=== PATIENT | male | born 1940 | race Caucasian/White ===

== ENCOUNTER 2016-10-25 17:03 | Inpatient (IN) | payer OTHER ==
[2016-10-25] MEDS ORDERED: ZOFRAN INJ 4 MG VIAL 16 MG, ATIVAN INJ 2 MG VIAL 1 MG, DECADRON INJ 10 MG in NS 50 ML I... IV PRN (17:38)
--- NOTE | 2016-10-25 17:45 | DR.H&P ---
H&P - History & Physical for Day of: H&P Date: 10/24/16 - Chief Complaint Chief Complaint: left flank pain, weakness, blood in urine - Allergies Allergies/Adverse Reactions: Allergies Allergy/AdvReac Type Severity Reaction Status Date / Time No Known Drug Allergy Allergy Verified 10/12/15 09:59 - History of Present Illness History of Present Illness: Patient is a 76-year-old white male who was a direct admit from Dr. Sprague's office after presenting with complaints of left flank pain, nausea vomiting, weakness and dehydration, blood in urine. Patient was seen at [facility] this past weekend and had a CT scan diagnosed with a renal stone to the left ureter. Patient denies passing the stone. Patient has seen Dr. Arthur, urologist earlier this week. Patient continues with severe pain and nausea and vomiting. Patient unable to keep anything down and cannot tolerate pain medication. Patient has a past medical history of factor V Leiden, hypertension, stage III renal disease, coronary artery disease - Past Medical History Past Medical History: Arthritis, Coronary Artery Disease, Hypertension, Kidney Stones, Renal Disease Additional Medical History: Reflux disease. Repeat H liver disease long-term anticoagulant therapy. Hypertension. Coronary artery disease. History of a PE. Factor V Leiden - Family History Family Medical History: Coronary Artery Disease, Hypertension - Social History Does patient currently use any type of tobacco product: Yes Have you used tobacco products in the last 12 months: Yes Type of Tobacco Use: Smokeless Does any household member use tobacco: No Alcohol Use: None Drug Use: None - Review of Systems Constitutional: Weakness Eyes: No Symptoms Reported ENT: No Symptoms Reported Respiratory: No Symptoms Reported Cardiovascular: Edema Gastrointestinal: Nausea, Vomiting, Abdominal Pain, Constipation Genitourinary: Hematuria, Retention Musculoskeletal: Back Pain Skin: No Symptoms Reported Neurological: Weakness, Confusion (per family) - Physical Exam Vital Signs: Blood Pressure 127/74 Oriented: Normal Eyes: Normal Ear: Normal Nose: Normal Throat: Dry Respiratory: RLL Diminished, LLL Diminished Cardiovascular: Normal, Edema (+ bilateral lower extremity edema) Tenderness: LLQ, Other (left flank tenderness) Musculoskeletal: Back:Thoracic Psychiatric: Anxiety Speech Pattern: Clear, Appropriate - Assessment/Plan (1) Renal calculus or stone Status: Acute Plan: with intractable pain, n/v. FOR iv HYDRATION AND iv PAIN CONTROL. pLAN TO OBTAIN REPEAT ct SCAN WITHOUT CONTRAST. aDMISSION LABS INCLUDING cbc, cmp, MAGNESIUM, URINALYSIS, BLOOD CULTURES. cHEST X-RAY ON ADMISSION. sTRICT i DENIES. nAUSEA CONTROL (2) UTI (urinary tract infection) Qualifiers: Urinary tract infection type: U Hematuria presence: H Indwelling urinary catheter type: I Encounter type: E Status: Acute Plan: RENAL DOSE FOR lEVAQUIN DAILY (3) Hematuria Status: Acute (4) Hypertension Qualifiers: Hypertension type: H Status: Acute (5) Factor V Leiden Status: Acute (6) Chronic renal failure, stage 3 (moderate) Status: Acute
[2016-10-25] MEDS ORDERED: LEVAQUIN PREMIX IV 250 MG 250 MG/50 ML BAG IV ONE (17:49)
[2016-10-25] MEDS ORDERED: NS 1000 ML 500 ML IV ONE (18:00)
[2016-10-25 18:28] LABS: BASOPHILS % (AUTO) 0.5 % (0.2-1.0); EOSINOPHILS # (AUTO) 0.2 x10^3/uL (0.0-0.2); EOSINOPHILS % (AUTO) 1.9 % (0.9-2.9); HEMATOCRIT 36.4 % (42.0-54.0); HEMOGLOBIN 12.2 g/dL (13.5-18.0); LYMPHOCYTES # (AUTO) 1.1 X10^3/uL (1.3-2.9); LYMPHOCYTES % (AUTO) 12.1 % (21.0-51.0); MEAN CORPUSCULAR HGB CONC 33.4 g/dL (33.0-35.0); MEAN CORPUSCULAR VOLUME 98.9 fL (80.0-100.0); MEAN PLATELET VOLUME 10.4 fL (7.4-11.0); MONOCYTES # (AUTO) 0.9 x10^3/uL (0.3-0.8); MONOCYTES % (AUTO) 10.1 % (0.0-13.0); NEUTROPHILS # (AUTO) 6.8 x10^3/uL (2.2-4.8); NEUTROPHILS % (AUTO) 75.4 % (42.0-75.0); PLATELET COUNT 85 X10^3/uL (150.0-450.0); RED BLOOD COUNT 3.68 X10^6/uL (4.7-6.0); RED CELL DISTRIBUTION WIDTH 15.4 % (11.6-16.5)
[2016-10-25 18:39] LABS: CALCIUM 8.4 mg/dL (8.5-10.1); CARBON DIOXIDE 25.7 mmol/L (21-32); COR CA(FOR HYPOALB) 9.2 mg/dL (8.5-10.1); CREATININE 3.7 mg/dL (0.70-1.30); MAGNESIUM 1.8 mg/dL (1.7-2.9); TOTAL PROTEIN 6.2 g/dL (6.4-8.2)
[2016-10-25 18:53] LABS: BILIRUBIN,URINE NEGATIVE (NEGATIVE); BLOOD/HEMOGLOBIN,URINE 5+ (NEGATIVE); GLUCOSE, URINE NEGATIVE (NEGATIVE); KETONES,URINE NEGATIVE (NEGATIVE); LEUKOCYTE ESTERASE ,URINE NEGATIVE (NEGATIVE); NITRITES,URINE NEGATIVE (NEGATIVE); PROTEIN,URINE 1+ (NEGATIVE); UROBILINOGEN,URINE NORMAL (NORMAL)
[2016-10-25 18:58] LABS: APPEARANCE,URINE HAZY (CLEAR); BACTERIA,URINE TRACE /HPF (NEGATIVE); COLOR,URINE YELLOW (YELLOW); RBC,URINE 0-5 /HPF (NEGATIVE); SQUAMOUS EPITHELIAL CELL,UR NEGATIVE /HPF (NEGATIVE)
--- NOTE | 2016-10-25 19:17 | RAD ---
Chest, one view Indication: Weakness, vomiting, CHF. Comparison: None Findings: There are ill-defined opacities at the medial left lung base. There is also linear scarrin g versus subsegmental atelectasis extending from the right hilum. No large effusion or pneumothorax is identified. The heart size is normal. The bony thorax is unremarkable. Impression: Ill-defined left basilar opacity, concerning for infiltrate. Correlation is recommended. Reported By:
[2016-10-25] MEDS: PROTONIX INJ 40 MG VIAL IVP SCH (19:31)
[2016-10-25 20:43] VITALS: BMI 23.7
[2016-10-26] MEDS ORDERED: NS 1000 ML 1,000 ML IV SCH (00:40)
[2016-10-26 05:23] LABS: BASOPHILS % (AUTO) 0.5 % (0.2-1.0); EOSINOPHILS # (AUTO) 0.2 x10^3/uL (0.0-0.2); EOSINOPHILS % (AUTO) 2.3 % (0.9-2.9); HEMATOCRIT 33.1 % (42.0-54.0); HEMOGLOBIN 11.2 g/dL (13.5-18.0); LYMPHOCYTES # (AUTO) 1.2 X10^3/uL (1.3-2.9); LYMPHOCYTES % (AUTO) 15.3 % (21.0-51.0); MEAN CORPUSCULAR HEMOGLOBIN 33.2 pg (27.0-34.0); MEAN CORPUSCULAR HGB CONC 33.9 g/dL (33.0-35.0); MEAN PLATELET VOLUME 10.1 fL (7.4-11.0); MONOCYTES # (AUTO) 0.9 x10^3/uL (0.3-0.8); MONOCYTES % (AUTO) 11.6 % (0.0-13.0); NEUTROPHILS # (AUTO) 5.6 x10^3/uL (2.2-4.8); NEUTROPHILS % (AUTO) 70.3 % (42.0-75.0); PLATELET COUNT 77 X10^3/uL (150.0-450.0); RED BLOOD COUNT 3.38 X10^6/uL (4.7-6.0); RED CELL DISTRIBUTION WIDTH 15.2 % (11.6-16.5); WHITE BLOOD COUNT 7.9 X10^3/uL (3.6-10.0)
[2016-10-26 05:57] LABS: ALBUMIN 2.4 g/dL (3.4-5.0); CALCIUM 7.9 mg/dL (8.5-10.1); CARBON DIOXIDE 21.4 mmol/L (21-32); COR CA(FOR HYPOALB) 9.2 mg/dL (8.5-10.1); CREATININE 3.53 mg/dL (0.70-1.30); TOTAL PROTEIN 5.1 g/dL (6.4-8.2)
[2016-10-26] MEDS: PROTONIX INJ 40 MG VIAL IVP SCH (09:14)
[2016-10-26] MEDS: NS 1000 ML 1,000 ML IV SCH (09:14)
[2016-10-26] MEDS ORDERED: ULTRAM PO PRN (11:40)
[2016-10-26] MEDS ORDERED: MILK OF MAGNESIA PO STA (11:42)
[2016-10-26] MEDS ORDERED: [UNRECOGNIZED DRUG - OTHER] PO SCH (11:45)
--- NOTE | 2016-10-26 11:54 | CT ---
HISTORY: Hematuria, renal colloid, left flank pain Study: CT abdomen and pelvis without contrast Comparison: Previous scanned in report from 10/22/2016 was reviewed Technique: Multiple axial images of the abdomen and pelvis were obtained without IV contrast. Oral contrast wa s not administered. Dose reduction techniques including Automated Exposure Control (AEC) and adjustm ent of mA and kV were utilized. Findings: There are small bilateral pleural effusions and atelectasis at the lung bases. Multiple hypodense l esions are seen in the liver measuring up to 10.4 cm statistically most likely representing cysts, b ut incompletely evaluated on noncontrast imaging. The unenhanced spleen, pancreas and adrenal glands are within normal limits. Small gas containing stones are suspected at the gallbladder neck. The bi liary tree is not dilated. There are bilateral simple appearing renal cysts noted. There is moderate left-sided hydroureteronephrosis due to a 6 mm stone in the distal left ureter. There are punctate bilateral nonobstructing renal calculi also noted. No free intraperitoneal air. No evidence of intestinal obstruction or inflammation. The appendix is normal. No significant free fluid identified. Sigmoid diverticular noted without evidence of acute i nflammation. There are degenerative changes of the thoracolumbar spine and bilateral hips with mild dextro curvat ure of the lumbar spine. There is extensive atherosclerotic disease of the aorta. No pathologically enlarged lymph nodes are identified. Mildly enlarged prostate gland. The urinary bladder is unremark able. IMPRESSION: 1. Moderate left-sided hydronephrosis due to a 6 mm stone in the distal left ureter. 2. Bilateral nephrolithiasis. 3. Renal and hepatic cysts. 4. Suspect small gallstones at the gallbladder neck. 5. Sigmoid diverticulosis. Reported By:
[2016-10-26] MEDS: ZOFRAN INJ 4 MG VIAL IVP PRN (18:16)
[2016-10-26] MEDS: MONOKET or IMDUR PO SCH (20:44)
[2016-10-26] MEDS: ELIQUIS PO SCH (20:44)
[2016-10-27] MEDS: NS 1000 ML 1,000 ML IV SCH ×2 (00:10→20:16)
[2016-10-27] MEDS: ZOFRAN INJ 4 MG VIAL IVP PRN ×2 (04:12→20:05)
[2016-10-27] MEDS: MORPHINE SULFATE INJ 2 MG IVP PRN ×2 (04:12→20:03)
[2016-10-27 06:36] LABS: BASOPHILS % (AUTO) 0.3 % (0.2-1.0); EOSINOPHILS # (AUTO) 0.3 x10^3/uL (0.0-0.2); EOSINOPHILS % (AUTO) 3.5 % (0.9-2.9); HEMATOCRIT 32.5 % (42.0-54.0); HEMOGLOBIN 10.9 g/dL (13.5-18.0); LYMPHOCYTES % (AUTO) 12.9 % (21.0-51.0); MEAN CORPUSCULAR HEMOGLOBIN 32.9 pg (27.0-34.0); MEAN CORPUSCULAR HGB CONC 33.4 g/dL (33.0-35.0); MEAN CORPUSCULAR VOLUME 98.7 fL (80.0-100.0); MEAN PLATELET VOLUME 9.8 fL (7.4-11.0); MONOCYTES # (AUTO) 0.9 x10^3/uL (0.3-0.8); MONOCYTES % (AUTO) 11.5 % (0.0-13.0); NEUTROPHILS # (AUTO) 5.8 x10^3/uL (2.2-4.8); NEUTROPHILS % (AUTO) 71.8 % (42.0-75.0); PLATELET COUNT 87 X10^3/uL (150.0-450.0)
[2016-10-27 06:41] LABS: ALANINE AMINOTRANSFERASE 24 Units/L (12-78); ALBUMIN 2.2 g/dL (3.4-5.0); ALKALINE PHOSPHATASE 85 Units/L (46-116); ASPARTATE AMINO TRANSFERASE 44 Units/L (15-37); BLOOD UREA NITROGEN 36 mg/dL (7-18); CALCIUM 7.5 mg/dL (8.5-10.1); CARBON DIOXIDE 24.7 mmol/L (21-32); CHLORIDE 103 mmol/L (98-107); COR CA(FOR HYPOALB) 8.9 mg/dL (8.5-10.1); GLUCOSE 109 mg/dL (65-99); SODIUM 135 mmol/L (136-145); TOTAL PROTEIN 4.7 g/dL (6.4-8.2); eGFR BLACK RACES 21 (>60); eGFR NON BLACK RACES 18 (>60)
[2016-10-27] MEDS ORDERED: NORCO 5/325 MG TAB PO PRN (08:29)
[2016-10-27] MEDS: FLOMAX PO SCH ×2 (08:56→20:05)
[2016-10-27] MEDS: PROTONIX TAB 40 MG PO SCH (08:56)
[2016-10-27] MEDS: ELIQUIS PO SCH ×2 (08:56→20:05)
[2016-10-27] MEDS: MONOKET or IMDUR PO SCH ×2 (08:57→20:05)
[2016-10-27] MEDS ORDERED: ZYLOPRIM PO SCH (09:00)
[2016-10-27] MEDS ORDERED: CITROMA PO ONE (13:29)
[2016-10-27] MEDS ORDERED: NS 1000 ML 250 ML IV ONE (13:58)
--- NOTE | 2016-10-27 14:55 | PCM.PROG ---
Progress Note - Progress Note for Day of Date: 10/26/16 - Subjective Subjective: patient is a 76-year-old white male who was admitted on 10/25 with complaints of left flank pain as well as nausea and vomiting and generalized weakness. Patient was diagnosed with a left renal stone on 10/21. Patient has been unable to pass stone at this point. Patient continues with generalized weakness and nausea. Patient's renal function still elevated baseline creatinine normally around 1.7-1.8. Plan to repeat CT of abdomen and pelvis today - Past Medical Family Social History Past Med/Fam/Surg Hx: No changes since H&P Allergies: Allergies No Known Drug Allergy Allergy (Verified 10/12/15 09:59) - Review of Systems ROS: No change since H&P - Vital Signs and I&O's Vital Signs: Temperature 98.7 F Pulse Rate [Left Brachial] 68 Respiratory Rate 18 Blood Pressure [Left Arm] 119/58 Blood Pressure 127/74 O2 Sat by Pulse Oximetry 91 Intake and Output: Intake & Output 10/25/16 10/26/16 10/27/16 10/28/16 11:59 11:59 11:59 11:59 Intake Total 0 1350 Output Total 50 1150 Balance -50 200 - Physical Exam Oriented: Normal Eyes: Normal Ear: Normal Nose: Normal Throat: Dry Cardiovascular: Normal, Edema (+ bilateral lower extremity edema) Tenderness: LLQ, Other (left flank tenderness) Musculoskeletal: Back:Thoracic Psychiatric: Anxiety Speech Pattern: Clear, Appropriate - Laboratory and Diagnostics Result Diagrams: 10/27/16 03:30 10/27/16 03:30 Labs: 10/25/16 18:05 Blood Blood Culture - Preliminary 10/25/16 17:55 Blood Blood Culture - Preliminary Laboratory WBC 8.0 X10^3/uL (3.6-10.0) 10/27/16 03:30 RBC 3.30 X10^6/uL (4.7-6.0) L 10/27/16 03:30 Hgb 10.9 g/dL (13.5-18.0) L 10/27/16 03:30 Hct 32.5 % (42.0-54.0) L 10/27/16 03:30 MCV 98.7 fL (80.0-100.0) 10/27/16 03:30 MCH 32.9 pg (27.0-34.0) 10/27/16 03:30 MCHC 33.4 g/dL (33.0-35.0) 10/27/16 03:30 RDW 15.0 % (11.6-16.5) 10/27/16 03:30 Plt Count 87 X10^3/uL (150.0-450.0) L 10/27/16 03:30 MPV 9.8 fL (7.4-11.0) 10/27/16 03:30 Neut % 71.8 % (42.0-75.0) 10/27/16 03:30 Lymph % 12.9 % (21.0-51.0) L 10/27/16 03:30 [place] % 11.5 % (0.0-13.0) 10/27/16 03:30 Eos % 3.5 % (0.9-2.9) H 10/27/16 03:30 Baso % 0.3 % (0.2-1.0) 10/27/16 03:30 Neut # 5.8 x10^3/uL (2.2-4.8) H 10/27/16 03:30 Lymph # 1.0 X10^3/uL (1.3-2.9) L 10/27/16 03:30 [place] # 0.9 x10^3/uL (0.3-0.8) H 10/27/16 03:30 Eos # 0.3 x10^3/uL (0.0-0.2) H 10/27/16 03:30 Baso # 0.0 X10^3/uL (0.0-0.1) 10/27/16 03:30 Absolute Nucleated RBC 0.2 /100WBC 10/27/16 03:30 Sodium 135 mmol/L (136-145) L 10/27/16 03:30 Corrected Sodium TNP 10/27/16 03:30 Potassium 4.1 mmol/L (3.5-5.1) 10/27/16 03:30 Chloride 103 mmol/L (98-107) 10/27/16 03:30 Carbon Dioxide 24.7 mmol/L (21-32) 10/27/16 03:30 BUN 36 mg/dL (7-18) H 10/27/16 03:30 Creatinine 3.60 mg/dL (0.70-1.30) H 10/27/16 03:30 Est GFR (MDRD) Af Amer 21 (>60) L 10/27/16 03:30 Est GFR (MDRD) Non-Af 18 (>60) L 10/27/16 03:30 Glucose 109 mg/dL (65-99) H 10/27/16 03:30 Calcium 7.5 mg/dL (8.5-10.1) L 10/27/16 03:30 Corrected Calcium 8.9 mg/dL (8.5-10.1) 10/27/16 03:30 Magnesium 1.8 mg/dL (1.7-2.9) 10/25/16 17:55 Total Bilirubin 0.90 mg/dL (0.2-1.0) 10/27/16 03:30 AST 44 Units/L (15-37) H 10/27/16 03:30 ALT 24 Units/L (12-78) 10/27/16 03:30 Alkaline Phosphatase 85 Units/L (46-116) 10/27/16 03:30 Total Protein 4.7 g/dL (6.4-8.2) L 10/27/16 03:30 Albumin 2.2 g/dL (3.4-5.0) L 10/27/16 03:30 Globulin 2.5 g/dL (2.5-4.5) 10/27/16 03:30 Albumin/Globulin Ratio 0.9 Ratio (1.1-2.1) L 10/27/16 03:30 Specimen Type Clean catch urine 10/25/16 18:32 Urine Color Yellow (YELLOW) 10/25/16 18:32 Urine Appearance Hazy (CLEAR) 10/25/16 18:32 Urine pH 5.0 (5.0 - 8.0) 10/25/16 18:32 Ur Specific [place] 1.015 (1.000-1.030) 10/25/16 18:32 Urine Protein 1+ (NEGATIVE) 10/25/16 18:32 Urine Glucose (UA) Negative (NEGATIVE) 10/25/16 18:32 Urine Ketones Negative (NEGATIVE) 10/25/16 18:32 Urine Occult Blood 5+ (NEGATIVE) 10/25/16 18:32 Urine Nitrite Negative (NEGATIVE) 10/25/16 18:32 Urine Bilirubin Negative (NEGATIVE) 10/25/16 18:32 Urine Urobilinogen Normal (NORMAL) 10/25/16 18:32 Ur Leukocyte Esterase Negative (NEGATIVE) 10/25/16 18:32 Urine RBC 0-5 /HPF (NEGATIVE) 10/25/16 18:32 Urine WBC 0-3 /HPF (NEGATIVE) 10/25/16 18:32 Ur Squamous Epith Cells Negative /HPF (NEGATIVE) 10/25/16 18:32 Urine Bacteria Trace /HPF (NEGATIVE) 10/25/16 18:32 Ur Culture Indicated? No/not indicated 10/25/16 18:32 - Plan (1) Renal calculus or stone Status: Acute Plan: with intractable pain, n/v. continue iv HYDRATION AND iv PAIN CONTROL. pLAN TO OBTAIN REPEAT ct SCAN WITHOUT CONTRAST. aDMISSION LABS INCLUDING cbc, cmp, MAGNESIUM, URINALYSIS, BLOOD CULTURES. cHEST X-RAY ON ADMISSION. sTRICT i & os (2) UTI (urinary tract infection) Status: Acute Qualifiers: Urinary tract infection type: U Hematuria presence: H Indwelling urinary catheter type: I Encounter type: E Plan: RENAL DOSE FOR lEVAQUIN DAILY (3) Hematuria Status: Acute (4) Hypertension Status: Chronic Qualifiers: Hypertension type: H (5) Factor V Leiden Status: Chronic (6) Chronic renal failure, stage 3 (moderate) Status: Chronic
--- NOTE | 2016-10-27 14:57 | PCM.PROG ---
Progress Note - Progress Note for Day of Date: 10/27/16 - Subjective Subjective: patient is a 76-year-old white male who was admitted on 10/25 with complaints of left flank pain as well as nausea and vomiting and generalized weakness. Patient was diagnosed with a left renal stone on 10/21. Patient has been unable to pass stone at this point. Patient continues with generalized weakness and nausea. Patient's renal function still elevated baseline creatinine normally around 1.7-1.8. repeat CT of abdomen and pelvis REVEALED SLIGHT PROGRESSION OF RENAL STONE INTO THE DISTAL URETER. pATIENT CONTINUES WITH DECREASED RENAL FUNCTION SIGNIFICANTLY ABOVE BASELINE. wE WILL ENCOURAGE BY MOUTH HYDRATION, PHYSICAL THERAPY AND iv BOLUS. wILL REPEAT A.M. LABS - Past Medical Family Social History Past Med/Fam/Surg Hx: No changes since H&P Allergies: Allergies No Known Drug Allergy Allergy (Verified 10/12/15 09:59) - Review of Systems ROS: No change since H&P - Vital Signs and I&O's Vital Signs: Temperature 98.7 F Pulse Rate [Left Brachial] 68 Respiratory Rate 18 Blood Pressure [Left Arm] 119/58 Blood Pressure 127/74 O2 Sat by Pulse Oximetry 91 Intake and Output: Intake & Output 10/25/16 10/26/16 10/27/16 10/28/16 11:59 11:59 11:59 11:59 Intake Total 0 1350 Output Total 50 1150 Balance -50 200 - Physical Exam Oriented: Normal Eyes: Normal Ear: Normal Nose: Normal Throat: Dry Cardiovascular: Normal, Edema (+ bilateral lower extremity edema) Tenderness: LLQ, Other (left flank tenderness) Musculoskeletal: Back:Thoracic Psychiatric: Anxiety Speech Pattern: Clear, Appropriate - Laboratory and Diagnostics Result Diagrams: 10/27/16 03:30 10/27/16 03:30 Labs: 10/25/16 18:05 Blood Blood Culture - Preliminary 10/25/16 17:55 Blood Blood Culture - Preliminary Laboratory WBC 8.0 X10^3/uL (3.6-10.0) 10/27/16 03:30 RBC 3.30 X10^6/uL (4.7-6.0) L 10/27/16 03:30 Hgb 10.9 g/dL (13.5-18.0) L 10/27/16 03:30 Hct 32.5 % (42.0-54.0) L 10/27/16 03:30 MCV 98.7 fL (80.0-100.0) 10/27/16 03:30 MCH 32.9 pg (27.0-34.0) 10/27/16 03:30 MCHC 33.4 g/dL (33.0-35.0) 10/27/16 03:30 RDW 15.0 % (11.6-16.5) 10/27/16 03:30 Plt Count 87 X10^3/uL (150.0-450.0) L 10/27/16 03:30 MPV 9.8 fL (7.4-11.0) 10/27/16 03:30 Neut % 71.8 % (42.0-75.0) 10/27/16 03:30 Lymph % 12.9 % (21.0-51.0) L 10/27/16 03:30 [place] % 11.5 % (0.0-13.0) 10/27/16 03:30 Eos % 3.5 % (0.9-2.9) H 10/27/16 03:30 Baso % 0.3 % (0.2-1.0) 10/27/16 03:30 Neut # 5.8 x10^3/uL (2.2-4.8) H 10/27/16 03:30 Lymph # 1.0 X10^3/uL (1.3-2.9) L 10/27/16 03:30 [place] # 0.9 x10^3/uL (0.3-0.8) H 10/27/16 03:30 Eos # 0.3 x10^3/uL (0.0-0.2) H 10/27/16 03:30 Baso # 0.0 X10^3/uL (0.0-0.1) 10/27/16 03:30 Absolute Nucleated RBC 0.2 /100WBC 10/27/16 03:30 Sodium 135 mmol/L (136-145) L 10/27/16 03:30 Corrected Sodium TNP 10/27/16 03:30 Potassium 4.1 mmol/L (3.5-5.1) 10/27/16 03:30 Chloride 103 mmol/L (98-107) 10/27/16 03:30 Carbon Dioxide 24.7 mmol/L (21-32) 10/27/16 03:30 BUN 36 mg/dL (7-18) H 10/27/16 03:30 Creatinine 3.60 mg/dL (0.70-1.30) H 10/27/16 03:30 Est GFR (MDRD) Af Amer 21 (>60) L 10/27/16 03:30 Est GFR (MDRD) Non-Af 18 (>60) L 10/27/16 03:30 Glucose 109 mg/dL (65-99) H 10/27/16 03:30 Calcium 7.5 mg/dL (8.5-10.1) L 10/27/16 03:30 Corrected Calcium 8.9 mg/dL (8.5-10.1) 10/27/16 03:30 Magnesium 1.8 mg/dL (1.7-2.9) 10/25/16 17:55 Total Bilirubin 0.90 mg/dL (0.2-1.0) 10/27/16 03:30 AST 44 Units/L (15-37) H 10/27/16 03:30 ALT 24 Units/L (12-78) 10/27/16 03:30 Alkaline Phosphatase 85 Units/L (46-116) 10/27/16 03:30 Total Protein 4.7 g/dL (6.4-8.2) L 10/27/16 03:30 Albumin 2.2 g/dL (3.4-5.0) L 10/27/16 03:30 Globulin 2.5 g/dL (2.5-4.5) 10/27/16 03:30 Albumin/Globulin Ratio 0.9 Ratio (1.1-2.1) L 10/27/16 03:30 Specimen Type Clean catch urine 10/25/16 18:32 Urine Color Yellow (YELLOW) 10/25/16 18:32 Urine Appearance Hazy (CLEAR) 10/25/16 18:32 Urine pH 5.0 (5.0 - 8.0) 10/25/16 18:32 Ur Specific [place] 1.015 (1.000-1.030) 10/25/16 18:32 Urine Protein 1+ (NEGATIVE) 10/25/16 18:32 Urine Glucose (UA) Negative (NEGATIVE) 10/25/16 18:32 Urine Ketones Negative (NEGATIVE) 10/25/16 18:32 Urine Occult Blood 5+ (NEGATIVE) 10/25/16 18:32 Urine Nitrite Negative (NEGATIVE) 10/25/16 18:32 Urine Bilirubin Negative (NEGATIVE) 10/25/16 18:32 Urine Urobilinogen Normal (NORMAL) 10/25/16 18:32 Ur Leukocyte Esterase Negative (NEGATIVE) 10/25/16 18:32 Urine RBC 0-5 /HPF (NEGATIVE) 10/25/16 18:32 Urine WBC 0-3 /HPF (NEGATIVE) 10/25/16 18:32 Ur Squamous Epith Cells Negative /HPF (NEGATIVE) 10/25/16 18:32 Urine Bacteria Trace /HPF (NEGATIVE) 10/25/16 18:32 Ur Culture Indicated? No/not indicated 10/25/16 18:32 - Plan (1) Renal calculus or stone Status: Acute Plan: with intractable pain, n/v. continue iv HYDRATION AND iv PAIN CONTROL. pLAN TO OBTAIN REPEAT ct SCAN WITHOUT CONTRAST. REPEAT AM LABS cbc, cmp cHEST X-RAY Q AM sTRICT i & os (2) UTI (urinary tract infection) Status: Acute Qualifiers: Urinary tract infection type: U Hematuria presence: H Indwelling urinary catheter type: I Encounter type: E Plan: RENAL DOSE FOR lEVAQUIN DAILY (3) Hematuria Status: Acute (4) Hypertension Status: Chronic Qualifiers: Hypertension type: H (5) Factor V Leiden Status: Chronic Plan: CONTINUE ELIQUIS (6) Chronic renal failure, stage 3 (moderate) Status: Chronic Plan: BASE LINE CREAT 1.7-1.9, WILL ENCOURAGE HYDRATION
[2016-10-27] MEDS: [UNRECOGNIZED DRUG - OTHER] PO SCH (16:06)
[2016-10-27 19:40] LABS: BLOOD UREA NITROGEN 34 mg/dL (7-18); CALCIUM 7.5 mg/dL (8.5-10.1); CARBON DIOXIDE 24.6 mmol/L (21-32); CHLORIDE 100 mmol/L (98-107); CREATININE 3.47 mg/dL (0.70-1.30); GLUCOSE 99 mg/dL (65-99); SODIUM 131 mmol/L (136-145); eGFR BLACK RACES 22 (>60); eGFR NON BLACK RACES 18 (>60)
[2016-10-28] MEDS: [UNRECOGNIZED DRUG - OTHER] PO SCH (00:27)
--- NOTE | 2016-10-28 05:39 | RAD ---
Chest, one view Indication: CHF, weakness Comparison: 10/25/2016 Findings: Previously described left basilar infiltrate has resolved. The right lung remains essentia lly clear. No large effusion or pneumothorax. The heart size is normal. Impression: Resolved left basilar opacity. No new abnormality. Reported By:
[2016-10-28 06:34] LABS: BASOPHILS % (AUTO) 0.2 % (0.2-1.0); EOSINOPHILS # (AUTO) 0.2 x10^3/uL (0.0-0.2); EOSINOPHILS % (AUTO) 3.2 % (0.9-2.9); HEMATOCRIT 31.9 % (42.0-54.0); LYMPHOCYTES # (AUTO) 0.9 X10^3/uL (1.3-2.9); LYMPHOCYTES % (AUTO) 11.5 % (21.0-51.0); MEAN CORPUSCULAR HEMOGLOBIN 33.4 pg (27.0-34.0); MEAN CORPUSCULAR HGB CONC 34.4 g/dL (33.0-35.0); MEAN CORPUSCULAR VOLUME 97.2 fL (80.0-100.0); MEAN PLATELET VOLUME 8.7 fL (7.4-11.0); MONOCYTES # (AUTO) 0.9 x10^3/uL (0.3-0.8); MONOCYTES % (AUTO) 12.1 % (0.0-13.0); NEUTROPHILS # (AUTO) 5.6 x10^3/uL (2.2-4.8); PLATELET COUNT 83 X10^3/uL (150.0-450.0); RED BLOOD COUNT 3.28 X10^6/uL (4.7-6.0); RED CELL DISTRIBUTION WIDTH 15.1 % (11.6-16.5); WHITE BLOOD COUNT 7.7 X10^3/uL (3.6-10.0)
[2016-10-28 07:21] LABS: ALANINE AMINOTRANSFERASE 28 Units/L (12-78); ALBUMIN 2.2 g/dL (3.4-5.0); ALKALINE PHOSPHATASE 82 Units/L (46-116); ASPARTATE AMINO TRANSFERASE 51 Units/L (15-37); BLOOD UREA NITROGEN 34 mg/dL (7-18); CALCIUM 7.4 mg/dL (8.5-10.1); CARBON DIOXIDE 25.5 mmol/L (21-32); CHLORIDE 102 mmol/L (98-107); COR CA(FOR HYPOALB) 8.8 mg/dL (8.5-10.1); CREATININE 3.36 mg/dL (0.70-1.30); GLUCOSE 101 mg/dL (65-99); SODIUM 133 mmol/L (136-145); TOTAL PROTEIN 4.9 g/dL (6.4-8.2); eGFR BLACK RACES 23 (>60); eGFR NON BLACK RACES 19 (>60)
[2016-10-28] MEDS: PROTONIX TAB 40 MG PO SCH (09:11)
[2016-10-28] MEDS: ELIQUIS PO SCH ×2 (09:11→20:56)
[2016-10-28] MEDS: MICRO K EXTEN CAP 10 MEQ PO SCH ×2 (09:11→20:56)
[2016-10-28] MEDS: FLOMAX PO SCH ×2 (09:12→20:56)
[2016-10-28] MEDS: MONOKET or IMDUR PO SCH ×2 (09:12→20:57)
[2016-10-28] MEDS: NS 1000 ML 1,000 ML IV SCH ×3 (13:00→20:22)
[2016-10-28] MEDS: MYLICON TAB 80 MG CHEW PO PRN (23:55)
[2016-10-29 07:27] LABS: BASOPHILS % (AUTO) 0.5 % (0.2-1.0); EOSINOPHILS # (AUTO) 0.3 x10^3/uL (0.0-0.2); EOSINOPHILS % (AUTO) 4.8 % (0.9-2.9); HEMATOCRIT 30.6 % (42.0-54.0); HEMOGLOBIN 10.5 g/dL (13.5-18.0); LYMPHOCYTES # (AUTO) 0.8 X10^3/uL (1.3-2.9); MEAN CORPUSCULAR HEMOGLOBIN 33.3 pg (27.0-34.0); MEAN CORPUSCULAR HGB CONC 34.1 g/dL (33.0-35.0); MEAN CORPUSCULAR VOLUME 97.7 fL (80.0-100.0); MEAN PLATELET VOLUME 9.4 fL (7.4-11.0); MONOCYTES # (AUTO) 0.7 x10^3/uL (0.3-0.8); MONOCYTES % (AUTO) 12.1 % (0.0-13.0); NEUTROPHILS # (AUTO) 3.9 x10^3/uL (2.2-4.8); NEUTROPHILS % (AUTO) 68.6 % (42.0-75.0); PLATELET COUNT 79 X10^3/uL (150.0-450.0); RED BLOOD COUNT 3.14 X10^6/uL (4.7-6.0); RED CELL DISTRIBUTION WIDTH 15.2 % (11.6-16.5); WHITE BLOOD COUNT 5.6 X10^3/uL (3.6-10.0)
[2016-10-29 07:37] LABS: ALANINE AMINOTRANSFERASE 32 Units/L (12-78); ALBUMIN 1.9 g/dL (3.4-5.0); ALKALINE PHOSPHATASE 78 Units/L (46-116); ASPARTATE AMINO TRANSFERASE 57 Units/L (15-37); BLOOD UREA NITROGEN 31 mg/dL (7-18); CALCIUM 7.2 mg/dL (8.5-10.1); CARBON DIOXIDE 24.3 mmol/L (21-32); CHLORIDE 103 mmol/L (98-107); COR CA(FOR HYPOALB) 8.9 mg/dL (8.5-10.1); CREATININE 3.12 mg/dL (0.70-1.30); GLUCOSE 95 mg/dL (65-99); SODIUM 134 mmol/L (136-145); TOTAL PROTEIN 4.7 g/dL (6.4-8.2); eGFR BLACK RACES 25 (>60); eGFR NON BLACK RACES 21 (>60)
--- NOTE | 2016-10-29 08:34 | CT ---
HISTORY: Left-sided flank pain, renal stone Study: CT abdomen and pelvis without contrast Comparison: 10/27/2011 Technique: Multiple axial images of the abdomen and pelvis were obtained from the lung bases to the pubic symph ysis without the administration of IV contrast. Automated exposure control (AEC) was utilized to ad just the MA and/or kV according to patient size. Findings: There are moderately sized bilateral pleural effusions again demonstrated. There is bibasilar atelec tasis. Abdomen: Please note that the lack of intravenous contrast limits sensitivity for detection of parenchymal le sions. There is again demonstration of a hypodensity within the right hepatic lobe measuring 9.8 x 8.3 cm d emonstrating fluid density. This is unchanged from previous exam. Multiple other smaller subcentimet er hypodensities are scattered throughout the liver.. There is increased attenuation within the gal lbladder which may represent sludge. This appears unchanged from previous exam.. The spleen, pancre as, and bilateral adrenal glands appear normal. There is again demonstration of mild left hydronephrosis and hydroureter secondary to a 5 mm calculu s within the distal right ureter this appears unchanged in position when compared to previous exam. 2.8 cm fluid density mass within the upper pole of the left kidney is compatible with a renal cyst.. The stomach is unremarkable. The small bowel and colon are nondistended. The appendix appears norm al. The abdominal aorta is of normal caliber. There is trace free fluid noted within the abdomen. Pelvis: The urinary bladder is grossly unremarkable. There is diverticulosis of the sigmoid colon without ev idence of diverticulitis.. There is a small amount of free fluid within the pelvis.. No acute osseous abnormalities are identified. IMPRESSION: 1. Mild left hydronephrosis and hydroureter secondary to a 5 mm calculus within the distal left ure ter. The degree of hydronephrosis and the location of the stone appear unchanged from previous exam. 2. Large hypodensity within the right hepatic lobe measures fluid density measuring up to 9.8 cm. Th is may represent a large hepatic cyst however would be better characterized with contrast-enhanced i maging either CT of the abdomen or MRI as clinically indicated. 3. Hyperattenuation within the gallbladder is likely secondary to sludge or small gallstones. This c ould be further assessed with gallbladder ultrasound if clinically indicated. 4. Sigmoid diverticulosis. 5. Bilateral pleural effusions and bibasilar atelectasis. 6. Trace ascites 7. Other findings as above Reported By:
[2016-10-29] MEDS: FLOMAX PO SCH ×2 (08:38→20:55)
[2016-10-29] MEDS: PROTONIX TAB 40 MG PO SCH (08:39)
[2016-10-29] MEDS: MICRO K EXTEN CAP 10 MEQ PO SCH ×2 (08:39→20:54)
[2016-10-29] MEDS: MONOKET or IMDUR PO SCH ×2 (08:39→20:56)
[2016-10-29] MEDS: MORPHINE SULFATE INJ 2 MG IVP PRN (13:33)
[2016-10-29] MEDS: ZOFRAN INJ 4 MG VIAL IVP PRN (13:33)
[2016-10-29] MEDS: NS 1000 ML 1,000 ML IV SCH ×2 (14:44→20:58)
[2016-10-29] MEDS: ELIQUIS PO SCH ×2 (16:43→20:55)
[2016-10-29] MEDS ORDERED: TORADOL 15 MG VIAL IM ONE (17:43)
[2016-10-29] MEDS ORDERED: TORADOL 15 MG VIAL IVP ONE (18:35)
[2016-10-29] MEDS ORDERED: ULTRAM PO PRN (18:35)
[2016-10-29] MEDS: MYLICON TAB 80 MG CHEW PO PRN (18:40)
[2016-10-29] MEDS: ATIVAN TAB 0.5 MG PO PRN (20:54)
[2016-10-30 05:07] LABS: CALCIUM 7.4 mg/dL (8.5-10.1); CARBON DIOXIDE 24.5 mmol/L (21-32); CREATININE 3.23 mg/dL (0.70-1.30)
[2016-10-30 05:13] LABS: BASOPHILS % (AUTO) 0.3 % (0.2-1.0); EOSINOPHILS # (AUTO) 0.3 x10^3/uL (0.0-0.2); EOSINOPHILS % (AUTO) 6.2 % (0.9-2.9); HEMATOCRIT 30.2 % (42.0-54.0); HEMOGLOBIN 10.4 g/dL (13.5-18.0); LYMPHOCYTES # (AUTO) 0.8 X10^3/uL (1.3-2.9); LYMPHOCYTES % (AUTO) 17.3 % (21.0-51.0); MEAN CORPUSCULAR HEMOGLOBIN 33.5 pg (27.0-34.0); MEAN CORPUSCULAR HGB CONC 34.4 g/dL (33.0-35.0); MEAN CORPUSCULAR VOLUME 97.3 fL (80.0-100.0); MEAN PLATELET VOLUME 8.9 fL (7.4-11.0); MONOCYTES # (AUTO) 0.5 x10^3/uL (0.3-0.8); MONOCYTES % (AUTO) 10.8 % (0.0-13.0); NEUTROPHILS # (AUTO) 3.2 x10^3/uL (2.2-4.8); NEUTROPHILS % (AUTO) 65.4 % (42.0-75.0); PLATELET COUNT 84 X10^3/uL (150.0-450.0); RED CELL DISTRIBUTION WIDTH 15.1 % (11.6-16.5); WHITE BLOOD COUNT 4.9 X10^3/uL (3.6-10.0)
[2016-10-30] MEDS: FLOMAX PO SCH ×2 (09:49→22:16)
[2016-10-30] MEDS: MICRO K EXTEN CAP 10 MEQ PO SCH ×2 (09:49→22:16)
[2016-10-30] MEDS: PROTONIX TAB 40 MG PO SCH (09:50)
[2016-10-30] MEDS: MONOKET or IMDUR PO SCH ×2 (09:50→22:21)
[2016-10-30] MEDS: ELIQUIS PO SCH ×2 (09:50→22:16)
--- NOTE | 2016-10-30 13:20 | RAD ---
HISTORY: Shortness of breath Study: Chest two-view Comparison: October 28, 2016 Findings: The heart is within normal limits in size. The kali are normal. The lungs are mildly hyperinflated c onsistent with COPD. No acute alveolar infiltrates are identified. There is a small left pleural eff usion present. The bony thorax is unremarkable. IMPRESSION: lungs hyperinflated but clear, consistent with COPD in the appropriate clinical setting. Small left pleural effusion Reported By:
[2016-10-30] MEDS ORDERED: RESTORIL CAP 15 MG PO PRN (13:23)
[2016-10-30] MEDS ORDERED: LASIX IVP ONE (17:04)
--- NOTE | 2016-10-30 17:07 | PCM.PROG ---
Progress Note - Progress Note for Day of Date: 10/30/16 - Subjective Subjective: patient is a 76-year-old white male who was admitted on 10/25 with complaints of left flank pain as well as nausea and vomiting and generalized weakness. Patient was diagnosed with a left renal stone on 10/21. Patient has been unable to pass stone at this point. Patient continues with generalized weakness and nausea. Patient's renal function still elevated baseline creatinine normally around 1.7-1.8. repeat CT of abdomen and pelvis REVEALED SLIGHT PROGRESSION OF RENAL STONE INTO THE DISTAL URETER. pATIENT CONTINUES WITH DECREASED RENAL FUNCTION SIGNIFICANTLY ABOVE BASELINE. wE WILL ENCOURAGE BY MOUTH HYDRATION, PHYSICAL THERAPY AND wILL REPEAT A.M. LABS - Past Medical Family Social History Past Med/Fam/Surg Hx: No changes since H&P Allergies: Allergies No Known Drug Allergy Allergy (Verified 10/12/15 09:59) - Review of Systems ROS: No change since H&P - Vital Signs and I&O's Vital Signs: Temperature 98.0 F Pulse Rate [Left Brachial] 57 Respiratory Rate 18 Blood Pressure [Left Arm] 126/65 Blood Pressure 127/74 O2 Sat by Pulse Oximetry 97 Intake and Output: Intake & Output 10/28/16 10/29/16 10/30/16 10/31/16 11:59 11:59 11:59 11:59 Intake Total 1600 1740 1740 1190 Output Total 700 1175 1675 400 Balance 900 565 65 790 - Physical Exam Oriented: Normal Eyes: Normal Ear: Normal Nose: Normal Throat: Dry Cardiovascular: Normal, Edema (+ bilateral lower extremity edema) Tenderness: LLQ, Other (left flank tenderness) Musculoskeletal: Back:Thoracic Psychiatric: Anxiety Speech Pattern: Clear, Appropriate - Laboratory and Diagnostics Result Diagrams: 10/30/16 03:45 10/30/16 03:45 Labs: 10/25/16 18:05 Blood Blood Culture - Final 10/25/16 17:55 Blood Blood Culture - Final Laboratory WBC 4.9 X10^3/uL (3.6-10.0) 10/30/16 03:45 RBC 3.10 X10^6/uL (4.7-6.0) L 10/30/16 03:45 Hgb 10.4 g/dL (13.5-18.0) L 10/30/16 03:45 Hct 30.2 % (42.0-54.0) L 10/30/16 03:45 MCV 97.3 fL (80.0-100.0) 10/30/16 03:45 MCH 33.5 pg (27.0-34.0) 10/30/16 03:45 MCHC 34.4 g/dL (33.0-35.0) 10/30/16 03:45 RDW 15.1 % (11.6-16.5) 10/30/16 03:45 Plt Count 84 X10^3/uL (150.0-450.0) L 10/30/16 03:45 MPV 8.9 fL (7.4-11.0) 10/30/16 03:45 Neut % 65.4 % (42.0-75.0) 10/30/16 03:45 Lymph % 17.3 % (21.0-51.0) L 10/30/16 03:45 [place] % 10.8 % (0.0-13.0) 10/30/16 03:45 Eos % 6.2 % (0.9-2.9) H 10/30/16 03:45 Baso % 0.3 % (0.2-1.0) 10/30/16 03:45 Neut # 3.2 x10^3/uL (2.2-4.8) 10/30/16 03:45 Lymph # 0.8 X10^3/uL (1.3-2.9) L 10/30/16 03:45 [place] # 0.5 x10^3/uL (0.3-0.8) 10/30/16 03:45 Eos # 0.3 x10^3/uL (0.0-0.2) H 10/30/16 03:45 Baso # 0.0 X10^3/uL (0.0-0.1) 10/30/16 03:45 Absolute Nucleated RBC 0.0 /100WBC 10/30/16 03:45 Sodium 136 mmol/L (136-145) 10/30/16 03:45 Corrected Sodium 136 mmol/L (136-145) 10/30/16 03:45 Potassium 4.9 mmol/L (3.5-5.1) 10/30/16 03:45 Chloride 106 mmol/L (98-107) 10/30/16 03:45 Carbon Dioxide 24.5 mmol/L (21-32) 10/30/16 03:45 BUN 32 mg/dL (7-18) H 10/30/16 03:45 Creatinine 3.23 mg/dL (0.70-1.30) H 10/30/16 03:45 Est GFR (MDRD) Af Amer 24 (>60) L 10/30/16 03:45 Est GFR (MDRD) Non-Af 20 (>60) L 10/30/16 03:45 Glucose 118 mg/dL (65-99) H 10/30/16 03:45 Calcium 7.4 mg/dL (8.5-10.1) L 10/30/16 03:45 Corrected Calcium 8.9 mg/dL (8.5-10.1) 10/29/16 06:40 Magnesium 1.8 mg/dL (1.7-2.9) 10/25/16 17:55 Total Bilirubin 1.20 mg/dL (0.2-1.0) H 10/29/16 06:40 AST 57 Units/L (15-37) H 10/29/16 06:40 ALT 32 Units/L (12-78) 10/29/16 06:40 Alkaline Phosphatase 78 Units/L (46-116) 10/29/16 06:40 Total Protein 4.7 g/dL (6.4-8.2) L 10/29/16 06:40 Albumin 1.9 g/dL (3.4-5.0) L 10/29/16 06:40 Globulin 2.8 g/dL (2.5-4.5) 10/29/16 06:40 Albumin/Globulin Ratio 0.7 Ratio (1.1-2.1) L 10/29/16 06:40 Specimen Type Clean catch urine 10/25/16 18:32 Urine Color Yellow (YELLOW) 10/25/16 18:32 Urine Appearance Hazy (CLEAR) 10/25/16 18:32 Urine pH 5.0 (5.0 - 8.0) 10/25/16 18:32 Ur Specific [place] 1.015 (1.000-1.030) 10/25/16 18:32 Urine Protein 1+ (NEGATIVE) 10/25/16 18:32 Urine Glucose (UA) Negative (NEGATIVE) 10/25/16 18:32 Urine Ketones Negative (NEGATIVE) 10/25/16 18:32 Urine Occult Blood 5+ (NEGATIVE) 10/25/16 18:32 Urine Nitrite Negative (NEGATIVE) 10/25/16 18:32 Urine Bilirubin Negative (NEGATIVE) 10/25/16 18:32 Urine Urobilinogen Normal (NORMAL) 10/25/16 18:32 Ur Leukocyte Esterase Negative (NEGATIVE) 10/25/16 18:32 Urine RBC 0-5 /HPF (NEGATIVE) 10/25/16 18:32 Urine WBC 0-3 /HPF (NEGATIVE) 10/25/16 18:32 Ur Squamous Epith Cells Negative /HPF (NEGATIVE) 10/25/16 18:32 Urine Bacteria Trace /HPF (NEGATIVE) 10/25/16 18:32 Ur Culture Indicated? No/not indicated 10/25/16 18:32 - Plan (1) Renal calculus or stone Status: Acute Plan: with intractable pain, n/v. continue iv HYDRATION AND iv PAIN CONTROL. pLAN TO OBTAIN REPEAT ct SCAN WITHOUT CONTRAST. REPEAT AM LABS cbc, cmp cHEST X-RAY Q AM sTRICT i & os (2) UTI (urinary tract infection) Status: Acute Qualifiers: Urinary tract infection type: U Hematuria presence: H Indwelling urinary catheter type: I Encounter type: E Plan: RENAL DOSE FOR lEVAQUIN DAILY (3) Hematuria Status: Acute (4) Hypertension Status: Chronic Qualifiers: Hypertension type: H (5) Factor V Leiden Status: Chronic Plan: CONTINUE ELIQUIS (6) Chronic renal failure, stage 3 (moderate) Status: Chronic Plan: BASE LINE CREAT 1.7-1.9, WILL ENCOURAGE HYDRATION
[2016-10-30] MEDS: MIRALAX POWDER (1 DOSE 17GM) PO SCH (22:16)
[2016-10-30] MEDS: NS 1000 ML 1,000 ML IV SCH (22:21)
[2016-10-31] MEDS: ATIVAN TAB 0.5 MG PO PRN (00:32)
[2016-10-31] MEDS: MYLICON TAB 80 MG CHEW PO PRN (00:36)
[2016-10-31] MEDS: NORCO 5/325 MG TAB PO PRN ×2 (00:37→23:28)
[2016-10-31] MEDS: NS 1000 ML 1,000 ML IV SCH ×2 (01:09→20:29)
[2016-10-31 05:25] LABS: BASOPHILS % (AUTO) 0.3 % (0.2-1.0); EOSINOPHILS # (AUTO) 0.4 x10^3/uL (0.0-0.2); EOSINOPHILS % (AUTO) 6.3 % (0.9-2.9); HEMATOCRIT 28.9 % (42.0-54.0); HEMOGLOBIN 9.9 g/dL (13.5-18.0); LYMPHOCYTES % (AUTO) 16.1 % (21.0-51.0); MEAN CORPUSCULAR HEMOGLOBIN 33.4 pg (27.0-34.0); MEAN CORPUSCULAR HGB CONC 34.2 g/dL (33.0-35.0); MEAN CORPUSCULAR VOLUME 97.8 fL (80.0-100.0); MEAN PLATELET VOLUME 9.1 fL (7.4-11.0); MONOCYTES # (AUTO) 0.6 x10^3/uL (0.3-0.8); MONOCYTES % (AUTO) 10.1 % (0.0-13.0); NEUTROPHILS % (AUTO) 67.2 % (42.0-75.0); PLATELET COUNT 97 X10^3/uL (150.0-450.0); RED BLOOD COUNT 2.95 X10^6/uL (4.7-6.0)
[2016-10-31 05:44] LABS: ALANINE AMINOTRANSFERASE 36 Units/L (12-78); ALBUMIN 1.9 g/dL (3.4-5.0); ALKALINE PHOSPHATASE 83 Units/L (46-116); ASPARTATE AMINO TRANSFERASE 53 Units/L (15-37); BLOOD UREA NITROGEN 29 mg/dL (7-18); CALCIUM 7.3 mg/dL (8.5-10.1); CARBON DIOXIDE 22.4 mmol/L (21-32); CHLORIDE 106 mmol/L (98-107); CREATININE 3.01 mg/dL (0.70-1.30); GLUCOSE 91 mg/dL (65-99); SODIUM 136 mmol/L (136-145); TOTAL PROTEIN 4.7 g/dL (6.4-8.2); eGFR BLACK RACES 26 (>60); eGFR NON BLACK RACES 22 (>60)
[2016-10-31] MEDS: PROTONIX TAB 40 MG PO SCH (09:12)
[2016-10-31] MEDS: MICRO K EXTEN CAP 10 MEQ PO SCH ×2 (09:12→20:41)
[2016-10-31] MEDS: ELIQUIS PO SCH ×2 (09:12→20:42)
[2016-10-31] MEDS: FLOMAX PO SCH ×2 (09:12→20:42)
[2016-10-31] MEDS: MONOKET or IMDUR PO SCH ×2 (09:13→20:41)
[2016-10-31] MEDS: MIRALAX POWDER (1 DOSE 17GM) PO SCH ×2 (15:26→20:42)
--- NOTE | 2016-10-31 18:21 | PCM.PROG ---
Progress Note - Progress Note for Day of Date: 10/31/16 - Subjective Subjective: patient is a 76-year-old white male who was admitted on 10/25 with complaints of left flank pain as well as nausea and vomiting and generalized weakness. Patient was diagnosed with a left renal stone on 10/21. Patient has been unable to pass stone at this point. Patient continues with generalized weakness and nausea. Patient's renal function still elevated baseline creatinine normally around 1.7-1.8. repeat CT of abdomen and pelvis REVEALED SLIGHT PROGRESSION OF RENAL STONE INTO THE DISTAL URETER. pATIENT CONTINUES WITH DECREASED RENAL FUNCTION SIGNIFICANTLY ABOVE BASELINE. wE WILL ENCOURAGE BY MOUTH HYDRATION, PHYSICAL THERAPY AND wILL REPEAT A.M. LABS - Past Medical Family Social History Past Med/Fam/Surg Hx: No changes since H&P Allergies: Allergies No Known Drug Allergy Allergy (Verified 10/12/15 09:59) - Review of Systems ROS: No change since H&P - Vital Signs and I&O's Vital Signs: Temperature 97.9 F Pulse Rate [Left Brachial] 62 Respiratory Rate 18 Blood Pressure [Left Arm] 123/58 Blood Pressure 127/74 O2 Sat by Pulse Oximetry 95 Intake and Output: Intake & Output 10/29/16 10/30/16 10/31/16 11/01/16 11:59 11:59 11:59 11:59 Intake Total 1740 1740 2310 240 Output Total 1175 1675 1900 1450 Balance 565 65 410 -1210 - Physical Exam Oriented: Normal Eyes: Normal Ear: Normal Nose: Normal Throat: Dry Cardiovascular: Normal, Edema (+ bilateral lower extremity edema) Tenderness: LLQ, Other (left flank tenderness) Musculoskeletal: Back:Thoracic Psychiatric: Anxiety Speech Pattern: Clear, Appropriate - Laboratory and Diagnostics Result Diagrams: 10/31/16 03:30 10/31/16 03:30 Labs: 10/25/16 18:05 Blood Blood Culture - Final 10/25/16 17:55 Blood Blood Culture - Final Laboratory WBC 6.0 X10^3/uL (3.6-10.0) 10/31/16 03:30 RBC 2.95 X10^6/uL (4.7-6.0) L 10/31/16 03:30 Hgb 9.9 g/dL (13.5-18.0) L 10/31/16 03:30 Hct 28.9 % (42.0-54.0) L 10/31/16 03:30 MCV 97.8 fL (80.0-100.0) 10/31/16 03:30 MCH 33.4 pg (27.0-34.0) 10/31/16 03:30 MCHC 34.2 g/dL (33.0-35.0) 10/31/16 03:30 RDW 15.0 % (11.6-16.5) 10/31/16 03:30 Plt Count 97 X10^3/uL (150.0-450.0) L 10/31/16 03:30 MPV 9.1 fL (7.4-11.0) 10/31/16 03:30 Neut % 67.2 % (42.0-75.0) 10/31/16 03:30 Lymph % 16.1 % (21.0-51.0) L 10/31/16 03:30 [place] % 10.1 % (0.0-13.0) 10/31/16 03:30 Eos % 6.3 % (0.9-2.9) H 10/31/16 03:30 Baso % 0.3 % (0.2-1.0) 10/31/16 03:30 Neut # 4.0 x10^3/uL (2.2-4.8) 10/31/16 03:30 Lymph # 1.0 X10^3/uL (1.3-2.9) L 10/31/16 03:30 [place] # 0.6 x10^3/uL (0.3-0.8) 10/31/16 03:30 Eos # 0.4 x10^3/uL (0.0-0.2) H 10/31/16 03:30 Baso # 0.0 X10^3/uL (0.0-0.1) 10/31/16 03:30 Absolute Nucleated RBC 0.1 /100WBC 10/31/16 03:30 Sodium 136 mmol/L (136-145) 10/31/16 03:30 Corrected Sodium TNP 10/31/16 03:30 Potassium 5.0 mmol/L (3.5-5.1) 10/31/16 03:30 Chloride 106 mmol/L (98-107) 10/31/16 03:30 Carbon Dioxide 22.4 mmol/L (21-32) 10/31/16 03:30 BUN 29 mg/dL (7-18) H 10/31/16 03:30 Creatinine 3.01 mg/dL (0.70-1.30) H 10/31/16 03:30 Est GFR (MDRD) Af Amer 26 (>60) L 10/31/16 03:30 Est GFR (MDRD) Non-Af 22 (>60) L 10/31/16 03:30 Glucose 91 mg/dL (65-99) 10/31/16 03:30 Calcium 7.3 mg/dL (8.5-10.1) L 10/31/16 03:30 Corrected Calcium 9.0 mg/dL (8.5-10.1) 10/31/16 03:30 Magnesium 1.8 mg/dL (1.7-2.9) 10/25/16 17:55 Total Bilirubin 0.70 mg/dL (0.2-1.0) 10/31/16 03:30 AST 53 Units/L (15-37) H 10/31/16 03:30 ALT 36 Units/L (12-78) 10/31/16 03:30 Alkaline Phosphatase 83 Units/L (46-116) 10/31/16 03:30 Total Protein 4.7 g/dL (6.4-8.2) L 10/31/16 03:30 Albumin 1.9 g/dL (3.4-5.0) L 10/31/16 03:30 Globulin 2.8 g/dL (2.5-4.5) 10/31/16 03:30 Albumin/Globulin Ratio 0.7 Ratio (1.1-2.1) L 10/31/16 03:30 Specimen Type Clean catch urine 10/25/16 18:32 Urine Color Yellow (YELLOW) 10/25/16 18:32 Urine Appearance Hazy (CLEAR) 10/25/16 18:32 Urine pH 5.0 (5.0 - 8.0) 10/25/16 18:32 Ur Specific [place] 1.015 (1.000-1.030) 10/25/16 18:32 Urine Protein 1+ (NEGATIVE) 10/25/16 18:32 Urine Glucose (UA) Negative (NEGATIVE) 10/25/16 18:32 Urine Ketones Negative (NEGATIVE) 10/25/16 18:32 Urine Occult Blood 5+ (NEGATIVE) 10/25/16 18:32 Urine Nitrite Negative (NEGATIVE) 10/25/16 18:32 Urine Bilirubin Negative (NEGATIVE) 10/25/16 18:32 Urine Urobilinogen Normal (NORMAL) 10/25/16 18:32 Ur Leukocyte Esterase Negative (NEGATIVE) 10/25/16 18:32 Urine RBC 0-5 /HPF (NEGATIVE) 10/25/16 18:32 Urine WBC 0-3 /HPF (NEGATIVE) 10/25/16 18:32 Ur Squamous Epith Cells Negative /HPF (NEGATIVE) 10/25/16 18:32 Urine Bacteria Trace /HPF (NEGATIVE) 10/25/16 18:32 Ur Culture Indicated? No/not indicated 10/25/16 18:32 - Plan (1) Renal calculus or stone Status: Acute Plan: with intractable pain, n/v. continue iv HYDRATION AND iv PAIN CONTROL. REPEAT AM LABS cbc, cmp cHEST X-RAY Q AM sTRICT i & os. DR MONTAÑO CONSULTED WITH DR DUNLAP ABOUT RENAL CALULI AND FUTURE CYSTOSCOPE (2) UTI (urinary tract infection) Status: Acute Qualifiers: Urinary tract infection type: U Hematuria presence: H Indwelling urinary catheter type: I Encounter type: E Plan: RENAL DOSE FOR lEVAQUIN DAILY (3) Hematuria Status: Acute (4) Hypertension Status: Chronic Qualifiers: Hypertension type: H (5) Factor V Leiden Status: Chronic Plan: CONTINUE ELIQUIS (6) Chronic renal failure, stage 3 (moderate) Status: Chronic Plan: BASE LINE CREAT 1.7-1.9, WILL ENCOURAGE HYDRATION
[2016-10-31] MEDS: XANAX PO PRN (20:41)
[2016-10-31] MEDS: COLACE CAP 100 MG PO SCH (20:41)
[2016-11-01] MEDS: NS 1000 ML 1,000 ML IV SCH ×2 (05:00→19:20)
[2016-11-01 05:22] LABS: BASOPHILS % (AUTO) 0.5 % (0.2-1.0); EOSINOPHILS # (AUTO) 0.3 x10^3/uL (0.0-0.2); EOSINOPHILS % (AUTO) 5.3 % (0.9-2.9); HEMATOCRIT 28.3 % (42.0-54.0); HEMOGLOBIN 9.7 g/dL (13.5-18.0); LYMPHOCYTES % (AUTO) 15.5 % (21.0-51.0); MEAN CORPUSCULAR HEMOGLOBIN 33.5 pg (27.0-34.0); MEAN CORPUSCULAR HGB CONC 34.5 g/dL (33.0-35.0); MEAN CORPUSCULAR VOLUME 97.2 fL (80.0-100.0); MEAN PLATELET VOLUME 8.7 fL (7.4-11.0); MONOCYTES # (AUTO) 0.6 x10^3/uL (0.3-0.8); MONOCYTES % (AUTO) 9.9 % (0.0-13.0); NEUTROPHILS # (AUTO) 4.3 x10^3/uL (2.2-4.8); NEUTROPHILS % (AUTO) 68.8 % (42.0-75.0); PLATELET COUNT 117 X10^3/uL (150.0-450.0); RED BLOOD COUNT 2.91 X10^6/uL (4.7-6.0); WHITE BLOOD COUNT 6.3 X10^3/uL (3.6-10.0)
[2016-11-01 05:31] LABS: ALANINE AMINOTRANSFERASE 40 Units/L (12-78); ALBUMIN 1.9 g/dL (3.4-5.0); ALKALINE PHOSPHATASE 90 Units/L (46-116); ASPARTATE AMINO TRANSFERASE 63 Units/L (15-37); BLOOD UREA NITROGEN 29 mg/dL (7-18); CALCIUM 7.5 mg/dL (8.5-10.1); CARBON DIOXIDE 22.4 mmol/L (21-32); CHLORIDE 108 mmol/L (98-107); COR CA(FOR HYPOALB) 9.2 mg/dL (8.5-10.1); CREATININE 2.93 mg/dL (0.70-1.30); GLUCOSE 90 mg/dL (65-99); SODIUM 138 mmol/L (136-145); TOTAL PROTEIN 4.6 g/dL (6.4-8.2); eGFR BLACK RACES 27 (>60); eGFR NON BLACK RACES 22 (>60)
--- NOTE | 2016-11-01 06:29 | RAD ---
HISTORY: Weakness, shortness of breath Study: Chest one view Comparison: October 30, 2016 Findings: The heart is within normal limits in size. The kali are normal. The lungs are hyperinflated consiste nt with COPD. No acute alveolar infiltrates or pleural effusions are identified on today's examinati on. The bony thorax is unremarkable. IMPRESSION: Lungs hyperinflated but clear, consistent with COPD Reported By:
[2016-11-01] MEDS: ELIQUIS PO SCH ×2 (09:05→20:53)
[2016-11-01] MEDS: FLOMAX PO SCH ×2 (09:06→20:53)
[2016-11-01] MEDS: PROTONIX TAB 40 MG PO SCH (09:06)
[2016-11-01] MEDS: MONOKET or IMDUR PO SCH ×2 (09:07→20:54)
[2016-11-01] MEDS: MICRO K EXTEN CAP 10 MEQ PO SCH ×2 (09:07→20:54)
--- NOTE | 2016-11-01 13:30 | RAD ---
HISTORY: Left renal calculus Study: KUB Comparison: CT abdomen pelvis October 29, 2016 Findings: The psoas shadows are seen. The abdominal gas shadows are unremarkable. There is a 5 millimeter calc ification left side of the true bony pelvis likely representing a distal left ureteral calculus unch anged in position from the recent CT. IMPRESSION: No significant change in the position of the patient's 5 millimeter distal left ureteral calculus Reported By:
--- NOTE | 2016-11-01 17:59 | PCM.PROG ---
Progress Note - Progress Note for Day of Date: 11/01/16 - Subjective Subjective: patient is a 76-year-old white male who was admitted on 10/25 with complaints of left flank pain as well as nausea and vomiting and generalized weakness. Patient was diagnosed with a left renal stone on 10/21. Patient has been unable to pass stone at this point. Patient continues with generalized weakness and nausea. Patient's renal function still elevated baseline creatinine normally around 1.7-1.8. repeat CT of abdomen and pelvis REVEALED SLIGHT PROGRESSION OF RENAL STONE INTO THE DISTAL URETER. pATIENT CONTINUES WITH DECREASED RENAL FUNCTION SIGNIFICANTLY ABOVE BASELINE. PT CONTINUE CO PAIN TO LEFT FLANK AND BLOOD IN URINE. PT CO GENERALIZED WEAKNESS. PT'S FAMILY MEMBER REQUESTING 2ND UROLOGIST OPINION, PT PREVIOUSLY ASSESS OP BY DR DUNLAP - Past Medical Family Social History Past Med/Fam/Surg Hx: No changes since H&P Allergies: Allergies No Known Drug Allergy Allergy (Verified 10/12/15 09:59) - Review of Systems ROS: No change since H&P - Vital Signs and I&O's Vital Signs: Temperature 97.8 F Pulse Rate [Left Brachial] 57 Respiratory Rate 20 Blood Pressure [Left Arm] 133/62 Blood Pressure 127/74 O2 Sat by Pulse Oximetry 94 Intake and Output: Intake & Output 10/30/16 10/31/16 11/01/16 11/02/16 11:59 11:59 11:59 11:59 Intake Total 1740 2710 2061 1050 Output Total 1675 1900 3000 1600 Balance 65 350 -199 -550 - Physical Exam Oriented: Normal Eyes: Normal Ear: Normal Nose: Normal Throat: Dry Cardiovascular: Normal, Edema (+ bilateral lower extremity edema) Tenderness: LLQ, Other (left flank tenderness) Musculoskeletal: Back:Thoracic Psychiatric: Anxiety Speech Pattern: Clear, Appropriate - Laboratory and Diagnostics Result Diagrams: 11/01/16 03:10 11/01/16 04:40 Labs: 10/25/16 18:05 Blood Blood Culture - Final 10/25/16 17:55 Blood Blood Culture - Final Laboratory WBC 6.3 X10^3/uL (3.6-10.0) 11/01/16 03:10 RBC 2.91 X10^6/uL (4.7-6.0) L 11/01/16 03:10 Hgb 9.7 g/dL (13.5-18.0) L 11/01/16 03:10 Hct 28.3 % (42.0-54.0) L 11/01/16 03:10 MCV 97.2 fL (80.0-100.0) 11/01/16 03:10 MCH 33.5 pg (27.0-34.0) 11/01/16 03:10 MCHC 34.5 g/dL (33.0-35.0) 11/01/16 03:10 RDW 15.0 % (11.6-16.5) 11/01/16 03:10 Plt Count 117 X10^3/uL (150.0-450.0) L 11/01/16 03:10 MPV 8.7 fL (7.4-11.0) 11/01/16 03:10 Neut % 68.8 % (42.0-75.0) 11/01/16 03:10 Lymph % 15.5 % (21.0-51.0) L 11/01/16 03:10 [place] % 9.9 % (0.0-13.0) 11/01/16 03:10 Eos % 5.3 % (0.9-2.9) H 11/01/16 03:10 Baso % 0.5 % (0.2-1.0) 11/01/16 03:10 Neut # 4.3 x10^3/uL (2.2-4.8) 11/01/16 03:10 Lymph # 1.0 X10^3/uL (1.3-2.9) L 11/01/16 03:10 [place] # 0.6 x10^3/uL (0.3-0.8) 11/01/16 03:10 Eos # 0.3 x10^3/uL (0.0-0.2) H 11/01/16 03:10 Baso # 0.0 X10^3/uL (0.0-0.1) 11/01/16 03:10 Absolute Nucleated RBC 0.1 /100WBC 11/01/16 03:10 Sodium 138 mmol/L (136-145) 11/01/16 04:40 Corrected Sodium TNP 11/01/16 04:40 Potassium 5.2 mmol/L (3.5-5.1) H 11/01/16 04:40 Chloride 108 mmol/L (98-107) H 11/01/16 04:40 Carbon Dioxide 22.4 mmol/L (21-32) 11/01/16 04:40 BUN 29 mg/dL (7-18) H 11/01/16 04:40 Creatinine 2.93 mg/dL (0.70-1.30) H 11/01/16 04:40 Est GFR (MDRD) Af Amer 27 (>60) L 11/01/16 04:40 Est GFR (MDRD) Non-Af 22 (>60) L 11/01/16 04:40 Glucose 90 mg/dL (65-99) 11/01/16 04:40 Calcium 7.5 mg/dL (8.5-10.1) L 11/01/16 04:40 Corrected Calcium 9.2 mg/dL (8.5-10.1) 11/01/16 04:40 Magnesium 1.8 mg/dL (1.7-2.9) 10/25/16 17:55 Total Bilirubin 0.70 mg/dL (0.2-1.0) 11/01/16 04:40 AST 63 Units/L (15-37) H 11/01/16 04:40 ALT 40 Units/L (12-78) 11/01/16 04:40 Alkaline Phosphatase 90 Units/L (46-116) 11/01/16 04:40 Total Protein 4.6 g/dL (6.4-8.2) L 11/01/16 04:40 Albumin 1.9 g/dL (3.4-5.0) L 11/01/16 04:40 Globulin 2.7 g/dL (2.5-4.5) 11/01/16 04:40 Albumin/Globulin Ratio 0.7 Ratio (1.1-2.1) L 11/01/16 04:40 Specimen Type Clean catch urine 10/25/16 18:32 Urine Color Yellow (YELLOW) 10/25/16 18:32 Urine Appearance Hazy (CLEAR) 10/25/16 18:32 Urine pH 5.0 (5.0 - 8.0) 10/25/16 18:32 Ur Specific [place] 1.015 (1.000-1.030) 10/25/16 18:32 Urine Protein 1+ (NEGATIVE) 10/25/16 18:32 Urine Glucose (UA) Negative (NEGATIVE) 10/25/16 18:32 Urine Ketones Negative (NEGATIVE) 10/25/16 18:32 Urine Occult Blood 5+ (NEGATIVE) 10/25/16 18:32 Urine Nitrite Negative (NEGATIVE) 10/25/16 18:32 Urine Bilirubin Negative (NEGATIVE) 10/25/16 18:32 Urine Urobilinogen Normal (NORMAL) 10/25/16 18:32 Ur Leukocyte Esterase Negative (NEGATIVE) 10/25/16 18:32 Urine RBC 0-5 /HPF (NEGATIVE) 10/25/16 18:32 Urine WBC 0-3 /HPF (NEGATIVE) 10/25/16 18:32 Ur Squamous Epith Cells Negative /HPF (NEGATIVE) 10/25/16 18:32 Urine Bacteria Trace /HPF (NEGATIVE) 10/25/16 18:32 Ur Culture Indicated? No/not indicated 10/25/16 18:32 - Plan (1) Renal calculus or stone Status: Acute Plan: CONTINUE PAIN CONTROL AND IV HYDRATION. STRAIN URINE, ENCOURAGE PT AND ORAL HYDRATION. DISCUSSED POSSIBLE TRANSFER FOR UROLOGIST CARE AND CYSTOSCOPE (2) UTI (urinary tract infection) Status: Acute Qualifiers: Urinary tract infection type: U Hematuria presence: H Indwelling urinary catheter type: I Encounter type: E Plan: RENAL DOSE FOR lEVAQUIN DAILY (3) Hematuria Status: Acute (4) Hypertension Status: Chronic Qualifiers: Hypertension type: H (5) Factor V Leiden Status: Chronic Plan: CONTINUE ELIQUIS (6) Chronic renal failure, stage 3 (moderate) Status: Chronic Plan: BASE LINE CREAT 1.7-1.9, WILL ENCOURAGE HYDRATION
[2016-11-01] MEDS: MIRALAX POWDER (1 DOSE 17GM) PO SCH ×2 (20:53)
[2016-11-01] MEDS: COLACE CAP 100 MG PO SCH (20:53)
[2016-11-02] MEDS: XANAX PO PRN (00:10)
[2016-11-02 05:23] LABS: BASOPHILS % (AUTO) 0.5 % (0.2-1.0); EOSINOPHILS # (AUTO) 0.3 x10^3/uL (0.0-0.2); EOSINOPHILS % (AUTO) 5.9 % (0.9-2.9); HEMATOCRIT 31.4 % (42.0-54.0); HEMOGLOBIN 10.5 g/dL (13.5-18.0); LYMPHOCYTES # (AUTO) 1.1 X10^3/uL (1.3-2.9); LYMPHOCYTES % (AUTO) 20.9 % (21.0-51.0); MEAN CORPUSCULAR HEMOGLOBIN 32.7 pg (27.0-34.0); MEAN CORPUSCULAR HGB CONC 33.3 g/dL (33.0-35.0); MEAN CORPUSCULAR VOLUME 98.3 fL (80.0-100.0); MEAN PLATELET VOLUME 8.4 fL (7.4-11.0); MONOCYTES # (AUTO) 0.5 x10^3/uL (0.3-0.8); MONOCYTES % (AUTO) 9.8 % (0.0-13.0); NEUTROPHILS # (AUTO) 3.4 x10^3/uL (2.2-4.8); NEUTROPHILS % (AUTO) 62.9 % (42.0-75.0); PLATELET COUNT 146 X10^3/uL (150.0-450.0); RED BLOOD COUNT 3.19 X10^6/uL (4.7-6.0); RED CELL DISTRIBUTION WIDTH 15.3 % (11.6-16.5); WHITE BLOOD COUNT 5.3 X10^3/uL (3.6-10.0)
[2016-11-02 05:24] LABS: ALANINE AMINOTRANSFERASE 42 Units/L (12-78); ALBUMIN 2.1 g/dL (3.4-5.0); ALKALINE PHOSPHATASE 97 Units/L (46-116); ASPARTATE AMINO TRANSFERASE 59 Units/L (15-37); BLOOD UREA NITROGEN 25 mg/dL (7-18); CALCIUM 7.7 mg/dL (8.5-10.1); CARBON DIOXIDE 23.8 mmol/L (21-32); CHLORIDE 108 mmol/L (98-107); COR CA(FOR HYPOALB) 9.2 mg/dL (8.5-10.1); CREATININE 2.83 mg/dL (0.70-1.30); GLUCOSE 75 mg/dL (65-99); SODIUM 139 mmol/L (136-145); TOTAL PROTEIN 5.1 g/dL (6.4-8.2); eGFR BLACK RACES 28 (>60); eGFR NON BLACK RACES 23 (>60)
[2016-11-02] MEDS: PROTONIX TAB 40 MG PO SCH (08:36)
[2016-11-02] MEDS: ELIQUIS PO SCH (08:36)
[2016-11-02] MEDS: MICRO K EXTEN CAP 10 MEQ PO SCH (08:36)
[2016-11-02] MEDS: MONOKET or IMDUR PO SCH (08:37)
[2016-11-02] MEDS: FLOMAX PO SCH (08:37)
[2016-11-02] MEDS: NORCO 5/325 MG TAB PO PRN ×2 (08:41→14:38)
[2016-11-02 12:49] VITALS: BP 131/62
--- NOTE | 2016-11-03 13:05 | PCM.DCPLAN ---
Discharge Summary - Admission Date Date of Admission: 10/25/16 - Discharge Date Discharge Date: 11/02/16 - Admission Diagnoses (1) Renal calculus or stone Status: Acute (2) UTI (urinary tract infection) Status: Acute (3) Hematuria Status: Acute (4) Hypertension Status: Chronic (5) Factor V Leiden Status: Chronic (6) Chronic renal failure, stage 3 (moderate) Status: Chronic - Discharge Diagnoses Discharge Diagnosis: same as admission - Discharge Medications Discharge Medications: Allopurinol [ZYLOPRIM tab 300 mg *] 300 mg PO DAILY 10/25/16 [History] Apixaban [Eliquis] 2.5 mg PO BID 10/25/16 [History] Atorvastatin Calcium [Lipitor] 10 mg PO HS 10/25/16 [History] Hydrocodone-Acet 5 mg/325 mg [[place] 5/325 mg Tab] 1 tab PO Q4-6H PRN 10/25/16 [ History] Isosorbide Mononitrate 20 mg PO BID 10/25/16 [History] Pantoprazole Sodium [Protonix] 40 mg PO DAILY 10/25/16 [History] Promethazine HCl 25 mg PO Q6HR PRN 10/25/16 [History] Tamsulosin HCl 0.4 mg PO HS 10/25/16 [History] Tramadol HCl 50 mg PO Q8H PRN 10/25/16 [History] Potassium Chloride [K-Tab] 10 meq PO BID 10/27/16 [History] - Hospital Course Vital Signs: Temperature 97.5 F Pulse Rate [Left Brachial] 58 Respiratory Rate 20 Blood Pressure [Left Arm] 131/62 Blood Pressure 127/74 O2 Sat by Pulse Oximetry 94 Latest Lab Results: Laboratory Last Values WBC 5.3 X10^3/uL (3.6-10.0) 11/02/16 03:20 RBC 3.19 X10^6/uL (4.7-6.0) L 11/02/16 03:20 Hgb 10.5 g/dL (13.5-18.0) L 11/02/16 03:20 Hct 31.4 % (42.0-54.0) L 11/02/16 03:20 MCV 98.3 fL (80.0-100.0) 11/02/16 03:20 MCH 32.7 pg (27.0-34.0) 11/02/16 03:20 MCHC 33.3 g/dL (33.0-35.0) 11/02/16 03:20 RDW 15.3 % (11.6-16.5) 11/02/16 03:20 Plt Count 146 X10^3/uL (150.0-450.0) L 11/02/16 03:20 MPV 8.4 fL (7.4-11.0) 11/02/16 03:20 Neut % 62.9 % (42.0-75.0) 11/02/16 03:20 Lymph % 20.9 % (21.0-51.0) L 11/02/16 03:20 [place] % 9.8 % (0.0-13.0) 11/02/16 03:20 Eos % 5.9 % (0.9-2.9) H 11/02/16 03:20 Baso % 0.5 % (0.2-1.0) 11/02/16 03:20 Neut # 3.4 x10^3/uL (2.2-4.8) 11/02/16 03:20 Lymph # 1.1 X10^3/uL (1.3-2.9) L 11/02/16 03:20 [place] # 0.5 x10^3/uL (0.3-0.8) 11/02/16 03:20 Eos # 0.3 x10^3/uL (0.0-0.2) H 11/02/16 03:20 Baso # 0.0 X10^3/uL (0.0-0.1) 11/02/16 03:20 Absolute Nucleated RBC 0.0 /100WBC 11/02/16 03:20 Sodium 139 mmol/L (136-145) 11/02/16 03:20 Corrected Sodium TNP 11/02/16 03:20 Potassium 5.2 mmol/L (3.5-5.1) H 11/02/16 03:20 Chloride 108 mmol/L (98-107) H 11/02/16 03:20 Carbon Dioxide 23.8 mmol/L (21-32) 11/02/16 03:20 BUN 25 mg/dL (7-18) H 11/02/16 03:20 Creatinine 2.83 mg/dL (0.70-1.30) H 11/02/16 03:20 Est GFR (MDRD) Af Amer 28 (>60) L 11/02/16 03:20 Est GFR (MDRD) Non-Af 23 (>60) L 11/02/16 03:20 Glucose 75 mg/dL (65-99) 11/02/16 03:20 Calcium 7.7 mg/dL (8.5-10.1) L 11/02/16 03:20 Corrected Calcium 9.2 mg/dL (8.5-10.1) 11/02/16 03:20 Magnesium 1.8 mg/dL (1.7-2.9) 10/25/16 17:55 Total Bilirubin 0.80 mg/dL (0.2-1.0) 11/02/16 03:20 AST 59 Units/L (15-37) H 11/02/16 03:20 ALT 42 Units/L (12-78) 11/02/16 03:20 Alkaline Phosphatase 97 Units/L (46-116) 11/02/16 03:20 Total Protein 5.1 g/dL (6.4-8.2) L 11/02/16 03:20 Albumin 2.1 g/dL (3.4-5.0) L 11/02/16 03:20 Globulin 3.0 g/dL (2.5-4.5) 11/02/16 03:20 Albumin/Globulin Ratio 0.7 Ratio (1.1-2.1) L 11/02/16 03:20 Specimen Type Clean catch urine 10/25/16 18:32 Urine Color Yellow (YELLOW) 10/25/16 18:32 Urine Appearance Hazy (CLEAR) 10/25/16 18:32 Urine pH 5.0 (5.0 - 8.0) 10/25/16 18:32 Ur Specific [place] 1.015 (1.000-1.030) 10/25/16 18:32 Urine Protein 1+ (NEGATIVE) 10/25/16 18:32 Urine Glucose (UA) Negative (NEGATIVE) 10/25/16 18:32 Urine Ketones Negative (NEGATIVE) 10/25/16 18:32 Urine Occult Blood 5+ (NEGATIVE) 10/25/16 18:32 Urine Nitrite Negative (NEGATIVE) 10/25/16 18:32 Urine Bilirubin Negative (NEGATIVE) 10/25/16 18:32 Urine Urobilinogen Normal (NORMAL) 10/25/16 18:32 Ur Leukocyte Esterase Negative (NEGATIVE) 10/25/16 18:32 Urine RBC 0-5 /HPF (NEGATIVE) 10/25/16 18:32 Urine WBC 0-3 /HPF (NEGATIVE) 10/25/16 18:32 Ur Squamous Epith Cells Negative /HPF (NEGATIVE) 10/25/16 18:32 Urine Bacteria Trace /HPF (NEGATIVE) 10/25/16 18:32 Ur Culture Indicated? No/not indicated 10/25/16 18:32 Hospital Course: Patient is a 76-year-old white male who was a direct admit from Dr. Sprague's office after presenting with complaints of left flank pain, nausea vomiting, weakness and dehydration, blood in urine. Patient was seen at [facility] this past weekend and had a CT scan diagnosed with a renal stone to the left ureter. Patient denies passing the stone. Patient has seen Dr. Arthur, urologist earlier this week. Patient continues with severe pain and nausea and vomiting. Patient unable to keep anything down and cannot tolerate pain medication. Patient has a past medical history of factor V Leiden, hypertension, stage III renal disease, coronary artery disease. patient had a CT scan on admission that revealed a continued left distal ureter or renal stone. Patient received IV hydration and pain control and physical therapy for several days with gradual improvement of renal function. Patient had a repeat CT scan on 10/29 with an O2 progression of renal stone. Dr. Sprague discussed plan of care with urologist, Dr. Jacome as well as Dr. Arthur. Advised advised him to hold off on cystoscope at this point and continue with IV hydration. Patient continued with slight renal function improvement but continued with complaints of left flank pain weakness and nausea. 419 patient had a KUB that revealed renal stone continued in the left ureter. Dr. Sprague discussed patient's plan of care with urologist for [facility]. All 3 consulting neurologist agreed patient needed to continue with hydration in weight 1-2 weeks at least for cystoscopic. Patient's condition did improve upon discharge patient was more active and improved weakness. Patient requesting to go home. Patient's BUE and 25 patient's creatinine 2.83 on discharge patient was set up with Dr. Pichardo urologist in [place] per family member for 8 AM on Sunday. Patient had received a low dose of IV Levaquin while inpatient for UTI. Patient was discharged home on pain medication, tramadol and a low-dose Levaquin 250 by mouth. Patient and family both demonstrated to continue home meds and increase by mouth fluids. Patient and family instructed to report to ER if condition changes or worsens unexpectedly they verbalized understanding and patient was discharged home by private vehicle his condition was stable on discharge patient was instructed to follow- up with Dr. Sprague in one week for repeat evaluation and additional laboratory testing. - Discharge Plan Disposition: HOME, SELF-CARE Condition: Stable - Follow ups/Referrals Follow ups/Referrals: JASE TOMLIN [Nurse Practitioner] - 11/08/16 3:15 pm JOSH PICHARDO [CONSULTING PHYSICIAN] - - Instructions Instructions: Renal Colic, [id number], Kidney Stones, [id number], Urinary Tract Infection, [id number], Form - Blood Pressure Record Sheet, Hypertension , [id number], Managing Your High Blood Pressure, Hematuria, Adult Additional Instructions: PT SEE DR PICHARDO ON SUNDAY AT 8 AM PT TO TAKE COPIES OF LABS AND CT ON CD WITH PT RESUME HOME MEDS REST, INCREASE WATER INTAKE STRAIN URINE, RX FOR LEVAQUIN AND XANAX HOME WITH PT Forms: Patient Portal
== END 2016-11-02 15:55 | disposition home or self-care (01) | DRG 694 ==
LOC: OBS 17:03 → MED/SURG 10-26 15:38 → OBSVTOIN 10-27 13:30
PROVIDERS: ADMIT Internal Medicine; ATTEND Internal Medicine
DX: N20.1 Calculus of ureter (principal); R31.0 Gross hematuria; N39.0 Urinary tract infection, site not specified; E86.0 Dehydration; R11.2 Nausea with vomiting, unspecified; R10.84 Generalized abdominal pain; I10 Essential (primary) hypertension; I25.10 Atherosclerotic heart disease of native coronary artery without angina pectoris; Z87.442 Personal history of urinary calculi; D68.51 Activated protein C resistance; N18.3 Chronic kidney disease, stage 3 (moderate); J90 Pleural effusion, not elsewhere classified; R53.1 Weakness
CPT/HCPCS: 36415; 71010; 71020; 74000; 74176; 80048; 80053; 81001; 83735; 85025; 87040; A4222; C9113; G0378; J1956; J2270; J2405

== ENCOUNTER → 2016-11-22 | Outpatient (CLI) | payer OTHER ==
[2016-11-02 12:49] VITALS: BP 131/62
--- NOTE | 2016-11-23 05:37 | CT ---
HISTORY: Subacute dizziness, headache, vision loss Study: CT brain without contrast Comparison: None Technique: Multiple axial images of the brain were obtained from the skull base to the vertex witho ut administration of IV contrast. AEC was utilized. Findings: No acute intraparenchymal hemorrhage or mass can be identified. No extra-axial fluid collections ar e seen. No alteration in the attenuation of the brain parenchyma can be identified to suggest acute or subacute ischemic change. The ventricular system is symmetric and nondilated. There is chronic periventricular white matter disease observed and age-appropriate generalized atrophy. Extracrania l structures are grossly unremarkable. IMPRESSION: 1. No acute intracranial process can be identified. 2. 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 3. Age-appropriate atrophic changes are seen. Reported By:
== END ==
LOC: RAD 15:36
PROVIDERS: ATTEND Nurse Practitioner Family
DX: R42 Dizziness and giddiness (principal); H54.7 Unspecified visual loss; R51 Headache
CPT/HCPCS: 70450